=== PATIENT | male | born 1960 | race Caucasian/White ===

== ENCOUNTER 2016-04-26 20:18 | Emergency (ER) | payer BC ==
[2016-04-26 20:32] VITALS: BP 132/73
[2016-04-26] MEDS ORDERED: Amoxicillin/Clavulanate TAB* 875 MG PO ONE (20:40)
--- NOTE | 2016-04-26 20:42 | UC ---
Throat Pain/Nasal Avel HPI - HPI Summary HPI Summary: SINUS PAIN AND PRESSURE X 7 DAYS + NASAL CONGESTION, PND , COUGH NO FEVER, NO CHILLS - History of Current Complaint Chief Complaint: UCGeneralIllness Stated Complaint: COUGH,SINUSES Time Seen by Provider: 04/26/16 20:36 Hx Obtained From: Patient Onset/Duration: Gradual Onset, Lasting Days - 7, Still Present Severity: Moderate Cough: Nonproductive Associated Signs & Symptoms: Positive: Sinus Discomfort, Nasal Discharge. Negative: Wheezing, Fever, Rash - Allergies/Home Medications Allergies/Adverse Reactions: Allergies Allergy/AdvReac Type Severity Reaction Status Date / Time No Known Allergies Allergy Verified 04/26/16 20:25 Home Medications: Home Medications Ascorbic Acid TAB* [Vitamin C TAB*] 500 mg PO DAILY 04/26/16 [History Confirmed 04/26/16] Atorvastatin* [Lipitor*] 20 mg PO DAILY 04/26/16 [History Confirmed 04/26/16] Levothyroxine TAB* [Synthroid TAB*] 37 mcg PO DAILY 04/26/16 [History Confirmed 04/26/16] Pseudoephedrine TAB* [Sudafed TAB*] 30 mg PO Q6H PRN 04/26/16 [History Confirmed 04/26/16] Warfarin TAB(*) [Coumadin TAB(*)] 6 mg PO DAILY@1700 04/26/16 [History Confirmed 04/26/16] PMH/Surg Hx/FS Hx/Imm Hx Endocrine History Of: Reports: Thyroid Disease - Surgical History Surgery Procedure, Year, and Place: aortic valve replacement 1997, right thumb sx, hernia repair as a child - Family History Known Family History: Negative: Diabetes - Social History Alcohol Use: Occasionally Substance Use Type: None Smoking Status (MU): Never Smoked Tobacco Review of Systems Constitutional: Negative Skin: Negative Eyes: Negative ENT: Sore Throat, Nasal Discharge Respiratory: Cough Cardiovascular: Negative Gastrointestinal: Negative Genitourinary: Negative All Other Systems Reviewed And Are Negative: Yes Physical Exam Triage Information Reviewed: Yes Appearance: Well-Appearing, No Pain Distress, Well-Nourished Vital Signs: Initial Vital Signs Temp 97.8 F 04/26/16 20:28 Pulse 70 04/26/16 20:28 Resp 16 04/26/16 20:28 BP 132/73 04/26/16 20:28 Pulse Ox 96 04/26/16 20:28 Vital Signs Reviewed: Yes ENT: Positive: Normal ENT inspection, Hearing grossly normal, Pharyngeal erythema, Nasal congestion, Nasal drainage, TMs normal Dental Exam: Normal Neck exam: Normal Neck: Positive: Supple, Nontender Respiratory Exam: Normal Respiratory: Positive: Chest non-tender, Lungs clear, Normal breath sounds Cardiovascular: Positive: RRR, No Murmur, Pulses Normal Skin Exam: Normal Throat Pain/Nasal Course/Dx - Differential Dx/Diagnosis Provider Diagnoses: SINUSITIS Discharge - Discharge Plan Condition: Stable Disposition: HOME Prescriptions: Amoxicillin/Clavulanate TAB* [Augmentin TAB 875*] 875 mg PO BID #20 tab Patient Education Materials: Sinusitis (ED) Additional Instructions: INCREASE FLUID, TYLENOL NEEDED FOR PAIN FLONASE DAILY FOLLOW UP NEEDED
== END 2016-04-26 20:50 | disposition home or self-care (01) ==
LOC: UCCORT 20:18
DX: J32.9 Chronic sinusitis, unspecified (principal); E07.9 Disorder of thyroid, unspecified; Z95.2 Presence of prosthetic heart valve; Z79.01 Long term (current) use of anticoagulants
CPT/HCPCS: 99202; A9270-GY; G0463